=== PATIENT | male | born 1930 | race Caucasian/White ===

== ENCOUNTER 2017-12-29 16:52 | Observation (INO) | payer MEDICARE, OTHER ==
[2017-12-29] MEDS ORDERED: NS 0.9% 1000 ML* 500 ML IV ONE (17:07)
--- NOTE | 2017-12-29 17:19 | ED ---
Altered Mental Status - HPI Summary HPI Summary: This pt is an 87 y/o male presenting to [facility] via EMS for confusion and altered mental status. Per EMS, [place] [employer] found the pt wandering around in the local parking lot. Per EMS, pt was confused on site. EMS reports the pt had POC glucose of 95. Denies chest pain, SOB, headache, fever. Currently pt is able to state his name and where he currently is located. Pt is unable to state the president. Denies any PMHx. HPI IS LIMITED DUE TO LEVEL 5 CAVEAT - confusion and AMS. - History Of Current Complaint Stated Complaint: POSS AMS Time Seen by Provider: 12/29/17 17:06 Hx Obtained From: Patient Hx From Patient Unobtainable Due To: Altered Mental Status Onset/Duration: Still Present Timing: Constant Severity Currently: Moderate Character: Confusion Aggravating Factor(s): Unknown Alleviating Factor(s): Unknown Associated Signs And Symptoms: Negative: Fever - Allergies/Home Medications Allergies/Adverse Reactions: Allergies Allergy/AdvReac Type Severity Reaction Status Date / Time No Known Allergies Allergy Verified 12/29/17 18:10 Home Medications: Home Medications Unobtainable 12/29/17 [History Confirmed 12/29/17] PMH/Surg Hx/FS Hx/Imm Hx Previously Healthy: Yes - PMHx limited due to AMS Endocrine/Hematology History: Denies: Hx Diabetes Cardiovascular History: Denies: Hx Hypertension - Surgical History Surgery Procedure, Year, and Place: unknown - Family History Known Family History: Positive: Unknown - due to level 5 caveat - AMS - Social History Alcohol Use: None Substance Use Type: Reports: None Smoking Status (MU): Former Smoker Review of Systems - ROS Summary Review of Systems Summary: ROS IS LIMITED DUE TO LEVEL 5 CAVEAT - AMS Negative: Fever, Chills Negative: Chest Pain Negative: Shortness Of Breath Neurological: Other - POS: confusion, AMS Negative: Headache All Other Systems Reviewed And Are Negative: No Physical Exam - Summary Physical Exam Summary: VITAL SIGNS: Reviewed. GENERAL: Patient is a well-developed and nourished male who is lying comfortable in the stretcher. Patient is not in any acute respiratory distress. HEAD AND FACE: No signs of trauma. No ecchymosis, hematomas or skull depressions. No sinus tenderness. EYES: PERRLA, EOMI x 2, No injected conjunctiva, no nystagmus. EARS: Hearing grossly intact. Ear canals and tympanic membranes are within normal limits. MOUTH: Oropharynx within normal limits. NECK: Supple, trachea is midline, no adenopathy, no JVD, no carotid bruit, no c- spine tenderness, neck with full ROM. CHEST: Symmetric, no tenderness at palpation LUNGS: Clear to auscultation bilaterally. No wheezing or crackles. CVS: Regular rate and rhythm, S1 and S2 present, no murmurs or gallops appreciated. ABDOMEN: Soft, non-tender. No signs of distention. No rebound no guarding, and no masses palpated. Bowel sounds are normal. EXTREMITIES: FROM in all major joints, no edema, no cyanosis or clubbing. NEURO: Alert but not oriented. No acute neurological deficits. Speech is normal and follows commands. SKIN: Dry and warm GCS: 15 Triage Information Reviewed: Yes Vital Signs On Initial Exam: Initial Vitals Temp Pulse Resp BP Pulse Ox 98.3 F 84 16 134/87 96 12/29/17 17:05 12/29/17 17:05 12/29/17 17:05 12/29/17 17:05 12/29/17 17:05 Vital Signs Reviewed: Yes Completion Of Physical Exam Limited Due To: Altered Mental Status Diagnostics - Laboratory Result Diagrams: 12/29/17 17:34 12/29/17 17:34 Lab Statement: Any lab studies that have been ordered have been reviewed, and results considered in the medical decision making process. - Radiology Chest XR Xray Interpretation: Positive (See Comments) - IMPRESSION: There are no prior chest x-rays for comparison, but findings indicate the patient has a history of partial or complete left lobectomy. Scattered density in the lateral aspect of the left upper lobe and the right lower lobe as a broad differential including scarring, infiltrate, pneumonia or potentially neoplastic process. Dr. Small has reviewed this radiology report. Radiology Interpretation Completed By: Radiologist - CT Brain CT CT Interpretation: No Acute Changes - IMPRESSION: CT findings are consistent with age-appropriate involutional changes and microvascular disease without acute intracranial abnormality. Dr. Small has reviewed this radiology report. CT Interpretation Completed By: Radiologist - EKG 17:29 Cardiac Rate: NL - at 72 bpm EKG Rhythm: Sinus Rhythm EKG Interpretation: No ST elevations. Q waves in V1 and V2. Altered Mental Statu Course/Dx - Course Assessment/Plan: This patient is an 87-year-old male who presents to the emergency department escorted by police officers with a chief complaint of the patient having an acute episode of altered mental status. The patient is confused and he was found wandering in a parking lot. The patient is alert but not oriented. Blood test results shows a white blood cell count of 11.9, slight anemia, potassium level of 5.4, BUN is 41 and creatinine 1.9, glucose 111. Head CT shows no acute intracranial pathology only chronic changes. Chest x-ray impression: Positive right lower lobe pneumonia. In the ED course the patient was given IV fluids for dehydration, patient was given Levaquin for the pneumonia. At this time I discussed my physical exam and findings with Dr. Barragan from the hospitalist services who accepted the patient for admission. Patient is hemodynamically stable. - Diagnoses Provider Diagnoses: Acute alteration in mental status, Pneumonia, Renal failure - Provider Notifications Discussed Care Of Patient With: Charlie Barragan - hospitalist Time Discussed With Above Provider: 18:35 Instructed by Provider To: Admit As Inpatient Discharge - Sign-Out/Discharge Documenting (check all that apply): Patient Departure - Admit to [facility] - Discharge Plan Condition: Stable Disposition: ADMITTED TO [facility] - Billing Disposition and Condition Condition: STABLE Disposition: Admitted to [facility] - Attestation Statements Document Initiated by Scribe: Yes Documenting Scribe: Mckenzie Pierce Provider For Whom Pedroibe is Documenting (Include Credential): Hamlet Small MD Scribe Attestation: Mckenzie Daniel, scribed for Hamlet Small MD on 12/30/17 at 0818. Scribe Documentation Reviewed: Yes Provider Attestation: The documentation as recorded by the Mckenzie olivarez accurately reflects the service I personally performed and the decisions made by me, Hamlet Small MD
--- NOTE | 2017-12-29 17:38 | RAD ---
INDICATION: Altered mental status COMPARISON: None. TECHNIQUE: Single AP view of the chest was obtained. FINDINGS: Postsurgical changes include surgical material overlying the upper left lateral mediastinum. The heart and mediastinum exhibit normal size and contour. The left lung volume is hypoplastic relative to the right, suspected to be due to partial or complete lobectomy. There is scattered infiltrate at overlying the lateral aspect of the left upper lobe and to a lesser extent the lateral aspect of the right lower lobe. Visualized bones are normal for the patient's age. IMPRESSION: THERE ARE NO PRIOR CHEST X-RAYS FOR COMPARISON, BUT FINDINGS INDICATE THE PATIENT HAS A HISTORY OF PARTIAL OR COMPLETE LEFT LOBECTOMY. SCATTERED DENSITY IN THE LATERAL ASPECT OF THE LEFT UPPER LOBE AND THE RIGHT LOWER LOBE A BROAD DIFFERENTIAL INCLUDING SCARRING, INFILTRATE, PNEUMONIA OR POTENTIALLY NEOPLASTIC PROCESS.
--- NOTE | 2017-12-29 17:43 | RAD ---
INDICATION: Altered mental status COMPARISON: None. TECHNIQUE: Contiguous axial sections of the brain were obtained from the skull base to the vertex without contrast. FINDINGS: The ventricles, cisterns and sulci exhibit fairly symmetrical involutional changes not out of proportion for the patient's age.. There is a very mild degree of periventricular and subcortical white matter hypoattenuation most consistent with mild microvascular disease. The rodriguez-white matter differentiation is adequately maintained and there is no sulcal effacement. No significant focal abnormality or mass effect is present. There is no evidence for intracranial hemorrhage. No significant focal osseous abnormality is present. There is a very mild degree of mucosal thickening of the bilateral anterior ethmoid air cells. The mastoid air cells are well aerated bilaterally. IMPRESSION: CT findings are consistent with age-appropriate involutional changes and microvascular disease without acute intracranial abnormality.
[2017-12-29 18:06] LABS: EGFR Non-African American 33.9 (>60)
[2017-12-29 18:11] LABS: ABS Basophils 0 10^3/ul (0-0.2); ABS Eosinophils 0.1 10^3/ul (0-0.6); ABS Lymphocytes 1.3 10^3/ul (1.0-4.8); ABS Monocytes 0.9 10^3/ul (0-0.8); ABS Neutrophils 9.5 10^3/ul (1.5-7.7); ABS Nucleated RBC 0 10^3/ul; Eosinophil % 1.1 % (0-6); Hematocrit 38 % (42-52); Hemoglobin 12.2 g/dl (14.0-18.0); Mean Corpuscular HGB Conc 32 g/dl (31-36); Mean Corpuscular Hemoglobin 29 pg (27-31); Mean Corpuscular Volume 88 fL (80-94); Mean Platelet Volume 9.3 um3 (7.4-10.4); Nucleated Red Blood Cells % 0; Platelet Count 307 10^3/ul (150-450); Red Blood Count 4.28 10^6/ul (4.00-5.40); Red Cell Distribution Width 14 % (10.5-15); White Blood Count 11.9 10^3/ul (3.5-10.8)
[2017-12-29] MEDS ORDERED: Levofloxacin 750 MG IVPREMIX(* 750 MG/150 ML BAG IVPB ONE (18:35)
[2017-12-29] MEDS ORDERED: Sodium Polystyrene ORAL.SOL* 15 GM/60 ML BTL PO ONE (19:25)
[2017-12-29] MEDS: NS 0.9% 1000 ML* 1,000 ML IV SCH (21:21)
[2017-12-29] MEDS ORDERED: diPHENhydraMINE PO* 25 MG PO ONE (22:00)
--- NOTE | 2017-12-29 22:43 | HP ---
HISTORY AND PHYSICAL: DATE OF ADMISSION: 12/29/17 ADMITTING PROVIDER: Charlie Barragan MD PRIMARY CARE PROVIDER: Unknown. CHIEF COMPLAINT: Altered mental status, found wandering in the parking lot; chills. HISTORY OF PRESENT ILLNESS: Belkys Hartmann is an 87-year-old male, no known past medical history but evidence of left lobectomy on imaging; he was found wandering in the parking lot on the afternoon of admission, alert, but not oriented and was [place] [facility] [place]. He was able to give a formal address and his name, but no other contact information or details, he attested to shivering and hunger, but not any fevers, chest pain, shortness of breath, cough, diarrhea, vomiting, nausea, falls. On initial workup, he had creatinine of 1.90, potassium was 5.4, BUN of 41, and slight leukocytosis of 11.9, and slight hypercalcemia of 10.4. He was referred to hospitalist service for admission for altered mental status and likely need for social work/nursing facility placement if family cannot be found. He is afebrile, normotensive, saturating well on room air. He had a CT brain which showed components of age appropriate involutional changes and microvascular disease without acute intracranial abnormality and a chest x-ray which showed as above partial or complete left lobectomy and scattered densities in the lateral aspect of the left upper lobe and the right lower lobe with broad differential of scarring, infiltrate, pneumonia or potentially neoplastic process. A 750 mg of IV Levaquin had been ordered by the emergency room but it was asked to be delayed until blood cultures are drawn. The patient attests that he formally lived in a house in [place] that has been sold. He briefly mentioned that he "lives on campus," later clarified to [facility] but then later denies this. 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 PAST MEDICAL HISTORY: None known but tested being a former smoker and has evidence of partial or complete left lobectomy. MEDICATIONS: Denies any. ALLERGIES: Denies any. FAMILY HISTORY: Mother and father both . He does not know why. SOCIAL HISTORY: The patient states he is a former smoker. He drinks "very little." He attests that he thinks he has a , does not remember if she is alive. He attests to 1 son and 1 daughter, both reported living in [facility] , cannot attest how old they are or if they have their own families. The patient desires to be a full code. No known medical surrogate at this time. REVIEW OF SYSTEMS: A complete 14-point review of systems negative except as per HPI. PHYSICAL EXAMINATION GENERAL APPEARANCE: In no acute distress. The patient seems to be shivering. VITAL SIGNS: Temperature 98.3, pulse 84, respirations 16, satting 96% on room air, blood pressure 134/87. HEENT: Normocephalic, atraumatic. Pupils are equal, round, and reactive to light. Extraocular motions are intact. No scleral icterus. Dry mucous membranes. Very poor dentition. Evidence of looks like chewing tobacco, stains on his chin. No cervical lymphadenopathy. LUNGS: Clear to auscultation bilaterally with no wheezing, rales, or rhonchi. CARDIOVASCULAR: Regular rate and rhythm. No murmurs, rubs, or gallops. ABDOMEN: Soft, nontender, nondistended. No rebound or guarding. No Johansen's sign. EXTREMITIES: Warm, well perfused. No peripheral edema. SKIN: No lesions or rashes. NEURO: Hip flexor is 5/5 bilaterally. Financial Aid Advisor strength 5/5 bilaterally. Cranial nerves II through XII intact. The patient is oriented to his date of , but not current year. He knows his name but not reason for admission. DIAGNOSTIC STUDIES/LAB DATA: White count 11.9, hemoglobin 12.2, hematocrit 38 , platelets 307, neutrophils 79.8%. Sodium 143, potassium 5.4, chloride 107, carbon dioxide 27. BUN 41 and creatinine 1.90. Glucose 111. Lactic acid 2.0. Calcium 10.4. Magnesium 2.6. Total bili is 1.10. AST 15, ALT 11, alk phos 60, ammonia 32. Troponin 0.01. Albumin 4.6. TSH 5.25. Toxicology: Salicylates less than 2.5. Acetaminophen less than 15. Serum alcohol less than 10. Imaging: CT brain demonstrating consistent with age appropriate involutional changes and microvascular disease without acute intracranial abnormality. Chest x- ray demonstrating history of partial or complete left lobectomy. Scattered density in the lateral aspect of the left upper lobe and right lower lobe as broad differential includes scarring, infiltrate, pneumonia, or potentially neoplastic process. ASSESSMENT AND PLAN: Belkys Hartmann is an 87-year-old male with past medical history of left lobectomy, former smoker, current chewing tobacco use, otherwise unknown, who was found wandering in the parking lot, alert but not oriented to time or situation, found disheveled with evidence of acute kidney injury, mild leukocytosis, hyperkalemia, and seems to be shivering. He has some indeterminate chest x-ray findings with a broad differential. Procalcitonin is being added. I have asked the emergency room to hold off on his empiric dose of 750 mg of IV Levaquin until blood cultures are drawn. He also needs to have a urinalysis completed. He is not toxic-appearing but clearly disheveled, disoriented, and I will get a social work consult and physical therapy consultation (although it is noted he does have good strength in the bed). It is likely that he may need [facility] facility placement. I am admitting him to inpatient status as it is likely that he will need a placement and qualifying factors included hyperkalemia and acute kidney injury and altered mental status of unknown etiology. For encephalopathy/dementia workup I am getting HIV, syphilis, vitamin D, B12 in the morning. I will get urine random, creatinine, and urine sodium level and hydrate him with 75 cc of normal saline. For his hyperkalemia, I am going to give him 1 dose of Kayexalate 15 g po. Repeat BMP daily and hold off on empiric antibiotics until urinalysis and blood cultures can be obtained. Supplementing his diet with Ensure drinks, could consider calorie count. The patient is disheveled and BMI is 23.5. Radiologic differential included neoplastic process in the lungs. I have tried to call the number provided in the chart, . No one is answering. His listed address is [address] [place] [address]. He is a full code for now. No known medical surrogate. [id number]/[facility] #: [id number] MTDD
[2017-12-30 08:22] LABS: ABS Basophils 0 10^3/ul (0-0.2); ABS Eosinophils 0.4 10^3/ul (0-0.6); ABS Lymphocytes 1.7 10^3/ul (1.0-4.8); ABS Monocytes 0.7 10^3/ul (0-0.8); ABS Neutrophils 4.8 10^3/ul (1.5-7.7); ABS Nucleated RBC 0 10^3/ul; Eosinophil % 5.8 % (0-6); Hematocrit 32 % (42-52); Hemoglobin 10.7 g/dl (14.0-18.0); Lymphocyte % 22.1 % (25-47); Mean Corpuscular HGB Conc 33 g/dl (31-36); Mean Corpuscular Hemoglobin 29 pg (27-31); Mean Corpuscular Volume 88 fL (80-94); Mean Platelet Volume 9.3 um3 (7.4-10.4); Nucleated Red Blood Cells % 0; Platelet Count 242 10^3/ul (150-450); Red Blood Count 3.69 10^6/ul (4.00-5.40); Red Cell Distribution Width 14 % (10.5-15); White Blood Count 7.7 10^3/ul (3.5-10.8)
[2017-12-30 08:35] LABS: EGFR Non-African American 47.8 (>60)
[2017-12-30 10:51] LABS: Urine Appearance Cloudy; Urine Blood Negative (Negative); Urine Color Yellow; Urine Ketones Trace (Negative); Urine Protein Negative (Negative); Urine Specific Gravity 1.018 (1.010-1.030); Urine Urobilinogen Negative (Negative)
[2017-12-30] MEDS: NS 0.9% 1000 ML* 1,000 ML IV SCH (14:23)
[2017-12-30 15:05] VITALS: BP 120/70
--- NOTE | 2017-12-31 03:09 | DS ---
DISCHARGE SUMMARY: DATE OF ADMISSION: 12/29/17 DATE OF DISCHARGE: 12/30/17 ATTENDING PHYSICIAN: Charlie Barragan MD. PRIMARY CARE PHYSICIAN: Currently none, and is only followed up with [facility]. CHIEF COMPLAINT: The patient was found wandering, confused in a parking lot. PRINCIPAL DIAGNOSES: Altered mental status; dehydration; acute kidney injury. HISTORY OF PRESENT ILLNESS AND HOSPITAL COURSE: Belkys Hartmann is an 87-year- old male with past medical history of left lobectomy for infected cyst, osteoarthritis, who was brought [place] emergency [place] [facility] when he was found wandering in a parking lot and not oriented to place or time. As such he was a very poor historian and initial workup focused on his lab abnormalities of elevated creatinine of 1.90, BUN of 41, and potassium of 5.4 along with workup for encephalopathy/dementia in the otherwise undifferentiated elderly patient. Eventually, we were able to reach his daughter, Elena, who related that rather than the patient being homeless which was initial concern, he lives with the daughter. He frequently goes on walks and it was a very hot day on day of admission, and thus believed that he got dehydrated and then confused. He was given IV fluids with improvement in his creatinine to 1.41. He had negative HIV , syphilis. Normal TSH. Normal vitamin B12 of 385, vitamin D 25-OH of 22.9 ( low normal). He had a urinalysis, which was significant for trace ketones. A negative toxicology screen including salicylates, acetaminophen, alcohol levels. He had a mild leukocytosis of less than 11.9 (improved to 7.7 next morning) and his chest x-ray was read as scattered density in the lateral aspect of the upper lobe and right lower lobe with broad differential including scarring, infiltrate, pneumonia, or potentially neoplastic process. The patient otherwise was without fever, shortness of breath, cough. He was normotensive, tachypneic or hypoxic and normal sinus rhythm. He was given 1 dose of Levaquin in the ED after blood cultures and urine sample were obtained. The blood cultures had been no growth x1 day. He has had negative Strep pneumoniae, Legionella urine antigen test and his procalcitonin level was normal at less than 0.1. The patient's orientation improved by hospital day #2 and daughter, Elena relates that the patient often is very forgetful. 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 Consideration for assisted living facilities or other alternative living arrangements should be entertained if the patient wanders frequently in the future. He was given information about the [facility] with regard to service and resource for followup until he can reestablish care with [facility] or other local primary care providers. He should get a BMP as an outpatient. DISCHARGE MEDICATIONS: None. ACTIVITY LEVEL: No restrictions. FOLLOWUP: Please follow up with [facility] within 8 days of discharge or re-establish care with the [facility] or the local primary care providers. TIME SPENT: On discharge, 35 minutes. [id number]/[facility] #: [id number] DUSTIN
== END 2017-12-30 16:35 | disposition home or self-care (01) ==
LOC: ED 16:52 → MED 19:14 → INTOOBSV 19:14
PROVIDERS: ADMIT Internal Medicine; ATTEND Internal Medicine
DX: R41.82 Altered mental status, unspecified (principal); E86.0 Dehydration; N17.9 Acute kidney failure, unspecified; M19.90 Unspecified osteoarthritis, unspecified site; D72.829 Elevated white blood cell count, unspecified; Z87.891 Personal history of nicotine dependence; R94.31 Abnormal electrocardiogram [ECG] [EKG]
CPT/HCPCS: 36415; 70450; 71045; 80048; 80053; 80307; 80320; 80329; 81003; 82140; 82306; 82550; 82570; 82607; 83605; 83735; 84145; 84300; 84443; 84484; 85025; 86592; 86703; 87040; 87899; 93005; 96374; 99285; A9270-GY; G0378; G0480; G8978-GP-CI; G8979-GP-CI; G8980-GP-CI

== ENCOUNTER → 2018-08-30 14:22 | Emergency (ER) | payer OTHER ==
[~2018-08-30 14:22] MED LIST: NS 0.9% 1000 ML** 1,000 ML IV ONE
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
[2018-08-30 15:35] LABS: ABS Basophils 0.1 10^3/ul (0-0.2); ABS Eosinophils 0.6 10^3/ul (0-0.6); ABS Lymphocytes 1.9 10^3/ul (1.0-4.8); ABS Monocytes 0.8 10^3/ul (0-0.8); ABS Neutrophils 5.9 10^3/ul (1.5-7.7); Eosinophil % 6.1 %; Hematocrit 32 % (42-52); Hemoglobin 10.3 g/dL (14.0-18.0); Lymphocyte % 20.8 %; Mean Corpuscular HGB Conc 32 g/dL (31-36); Mean Corpuscular Hemoglobin 29 pg (27-31); Mean Corpuscular Volume 88 fL (80-94); Mean Platelet Volume 8.2 fL (7.4-10.4); Platelet Count 296 10^3/uL (150-450); Red Blood Count 3.58 10^6 /uL (4.18-5.48); Red Cell Distribution Width 14 % (10.5-15); White Blood Count 9.3 10^3/uL (3.5-10.8)
[2018-08-30 15:44] LABS: INR 1.05 (0.82-1.09)
[2018-08-30 15:54] LABS: Troponin I 0.01 ng/mL (<0.04)
[2018-08-30 15:56] LABS: ALT 10 U/L (7-52); AST 12 U/L (13-39); Albumin/Globulin Ratio 1.6 (1-3); Alkaline Phosphatase 62 U/L (34-104); BUN/Creatinine Ratio 21.7 (8-20); Blood Urea Nitrogen 28 mg/dL (6-24); CO2 Carbon Dioxide 27 mmol/L (22-32); Calcium 9.2 mg/dL (8.6-10.3); Chloride 108 mmol/L (101-111); EGFR African American 63.9 (>60); EGFR Non-African American 52.8 (>60); Globulin 2.5 g/dL (2-4); Glucose 85 mg/dL (70-100); Magnesium 2.2 mg/dL (1.9-2.7); Sodium 140 mmol/L (135-145); Total Protein 6.5 g/dL (6.4-8.9)
[2018-08-30 16:08] LABS: Anion Gap 5 mmol/L (2-11); Potassium 5.1 mmol/L (3.5-5.0)
[2018-08-30 16:12] LABS: Alcohol < 10 mg/dL (<10); Salicylate < 2.50 mg/dL (<30)
[2018-08-30 16:15] LABS: TSH (Thyroid Stimulating Horm) 5.26 mcIU/mL (0.34-5.60)
[2018-08-30 16:24] LABS: Acetaminophen < 15 mcg/mL
[2018-08-30 17:14] VITALS: BP 147/73
== END | disposition home or self-care (01) ==
LOC: ED 14:22
DX: F03.90 Unspecified dementia, unspecified severity, without behavioral disturbance, psychotic disturbance, mood disturbance, and anxiety (principal); Z87.891 Personal history of nicotine dependence
CPT/HCPCS: 36415; 70450; 71046; 80053; 80320; 80329; 82140; 83605; 83735; 84443; 84484; 85025; 85610; 87040; 93005; 96360; 99283; G0480

== ENCOUNTER 2018-09-05 15:21 | Inpatient (IN) | payer BC, MEDICARE, OTHER ==
--- NOTE | 2018-09-05 16:49 | ED ---
Psychiatric Complaint - History Of Current Complaint Chief Complaint: EDPsychosocial Time Seen by Provider: 09/05/18 15:52 - Allergies/Home Medications Allergies/Adverse Reactions: Allergies Allergy/AdvReac Type Severity Reaction Status Date / Time No Known Allergies Allergy Verified 07/08/18 08:58 PMH/Surg Hx/FS Hx/Imm Hx Endocrine/Hematology History: Denies: Hx Diabetes Cardiovascular History: Denies: Hx Hypertension Respiratory History: Reports: Hx Pneumonia History: Reports: Other Problems/Disorders - renal failure Sensory History: Denies: Hx Contacts or Glasses, Hx Hearing Aid Opthamlomology History: Denies: Hx Contacts or Glasses Neurological History: Reports: Other Neuro Impairments/Disorders - AMS - Surgical History Surgery Procedure, Year, and Place: left lobectomy Infectious Disease History: No Infectious Disease History: Denies: Traveled Outside the US in Last 30 Days - Family History Known Family History: Positive: Unknown - due to level 5 caveat - AMS - Social History Alcohol Use: None Alcohol Amount: patient states his last drink was yesterday Hx Substance Use: No Substance Use Type: Reports: None Hx Tobacco Use: Yes Smoking Status (MU): Former Smoker Physical Exam Vital Signs On Initial Exam: Initial Vitals Temp Pulse Resp BP Pulse Ox 97.9 F 62 16 181/56 99 09/05/18 15:25 09/05/18 15:25 09/05/18 15:25 09/05/18 15:25 09/05/18 15:25 Diagnostics - Vital Signs Vital Signs Temp Pulse Resp BP Pulse Ox 09/05/18 15:25 97.9 F 62 16 181/56 99 - Laboratory Lab Statement: Any lab studies that have been ordered have been reviewed, and results considered in the medical decision making process. Discharge - Discharge Plan Referrals: No Primary Care Phys,NOPCP [Primary Care Provider] -
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
[2018-09-05] MEDS ORDERED: Acetaminophen TAB* 325 MG PO PRN (17:39)
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
[2018-09-05] MEDS: Heparin VIAL(*) 5000 UNITS/ML VIAL (FIVE THOUSAND) SUBCUT SCH (22:13)
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
[2018-09-06] MEDS: Heparin VIAL(*) 5000 UNITS/ML VIAL (FIVE THOUSAND) SUBCUT SCH ×3 (06:24→21:08)
[2018-09-06 06:39] LABS: ABS Basophils 0.1 10^3/ul (0-0.2); ABS Eosinophils 0.7 10^3/ul (0-0.6); ABS Monocytes 0.7 10^3/ul (0-0.8); ABS Neutrophils 4.7 10^3/ul (1.5-7.7); Eosinophil % 9.1 %; Hematocrit 33 % (42-52); Hemoglobin 11.1 g/dL (14.0-18.0); Lymphocyte % 24.2 %; Mean Corpuscular HGB Conc 33 g/dL (31-36); Mean Corpuscular Hemoglobin 29 pg (27-31); Mean Corpuscular Volume 87 fL (80-94); Mean Platelet Volume 8.2 fL (7.4-10.4); Platelet Count 280 10^3/uL (150-450); Red Blood Count 3.83 10^6 /uL (4.18-5.48); Red Cell Distribution Width 14 % (10.5-15); White Blood Count 8.1 10^3/uL (3.5-10.8)
[2018-09-06 06:55] LABS: BUN/Creatinine Ratio 20.4 (8-20); Calcium 9.1 mg/dL (8.6-10.3); EGFR African American 78.4 (>60); EGFR Non-African American 64.8 (>60); Potassium 4.6 mmol/L (3.5-5.0)
[2018-09-06] MEDS: Donepezil TAB* 5 MG PO SCH (13:37)
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
--- NOTE | 2018-09-06 19:10 | PN ---
Subjective Date of Service: 09/06/18 Interval History: VS: HTN- trending down Lab: H/H low- chronic Mr. Hartmann is a pleasant 88yom who has no complaints today. Nursing states that he has been up walking the halls. No concerns today. Objective Active Medications: Acetaminophen (Tylenol Tab*) 650 mg PO Q6H PRN Donepezil HCl (Aricept Tab*) 5 mg PO DAILY SOCRATES Heparin Sodium (Porcine) (Heparin Vial(*)) 5,000 units SUBCUT Q8HR SOCRATES Vital Signs: Temp Pulse Resp BP Pulse Ox 97.2 F 59 17 148/49 100 09/06/18 07:39 09/06/18 07:39 09/06/18 08:00 09/06/18 07:39 09/06/18 07:39 Oxygen Devices in Use Now: None Appearance: Pt is laying in bed with LE elevated. He is dressed in street clothes with shoes on. He appears comfortable and in no acute distress. Eyes: No Scleral Icterus, PERRLA Ears/Nose/Mouth/Throat: NL Teeth, Lips, Gums, Clear Oropharnyx, Mucous Membranes Moist Neck: NL Appearance and Movements; NL JVP, Trachea Midline Respiratory: Symmetrical Chest Expansion and Respiratory Effort, Clear to Auscultation Cardiovascular: NL Sounds; No Murmurs; No JVD, RRR, No Edema Abdominal: NL Sounds; No Tenderness; No Distention, No Hepatosplenomegaly Extremities: No Edema, No Clubbing, Cyanosis Neurological: - - Alert. Oriented to self only. Result Diagrams: 09/06/18 06:18 09/06/18 06:18 Assess/Plan/Problems-Billing Assessment: Pt is an 88 yom with PMHx dementia, tobacco abuse who is brought in by EMS after found wandering around outside. - Patient Problems (1) Dementia Comment: -Patient with dementia; daughter having difficulty taking care of patient and wants more help at home. She does not want patient place in SNF. -Psych consulted, thank you. Daughter would like to try Aricept (2) DVT prophylaxis Comment: -Heparin SQ (3) Full code status Status and Disposition: Observation. Likely discharge in a.m.
[2018-09-07] MEDS: Heparin VIAL(*) 5000 UNITS/ML VIAL (FIVE THOUSAND) SUBCUT SCH ×3 (05:34→21:47)
[2018-09-07] MEDS: Donepezil TAB* 5 MG PO SCH (08:08)
[2018-09-08 04:46] LABS: ABS Basophils 0.1 10^3/ul (0-0.2); ABS Eosinophils 0.8 10^3/ul (0-0.6); ABS Lymphocytes 2.8 10^3/ul (1.0-4.8); ABS Neutrophils 4.2 10^3/ul (1.5-7.7); Eosinophil % 9.1 %; Hematocrit 36 % (42-52); Hemoglobin 11.6 g/dL (14.0-18.0); Lymphocyte % 31.7 %; Mean Corpuscular HGB Conc 32 g/dL (31-36); Mean Corpuscular Hemoglobin 29 pg (27-31); Mean Corpuscular Volume 88 fL (80-94); Mean Platelet Volume 8.6 fL (7.4-10.4); Platelet Count 270 10^3/uL (150-450); Red Blood Count 4.08 10^6 /uL (4.18-5.48); Red Cell Distribution Width 14 % (10.5-15)
[2018-09-08] MEDS: Heparin VIAL(*) 5000 UNITS/ML VIAL (FIVE THOUSAND) SUBCUT SCH ×2 (05:37→13:50)
[2018-09-08 08:38] VITALS: BP 142/41
[2018-09-08] MEDS: Donepezil TAB* 5 MG PO SCH (08:49)
--- NOTE | 2018-09-08 22:44 | DS ---
DISCHARGE SUMMARY: DATE OF ADMISSION: 09/05/18 DATE OF DISCHARGE: 09/08/18 PRIMARY CARE PROVIDER: ATTENDING PHYSICIAN: Mckenzie Bond MD *(dictated by JOSE Hassan). PRIMARY DIAGNOSIS: Dementia, snf care. SECONDARY DIAGNOSES: 1. Dementia. 2. History of tobacco abuse. 3. Probable partial or complete left lobectomy. 4. Admitted to [facility] in December 2000 with altered mental status, dehydration, acute kidney injury. 5. Probable chronic obstructive pulmonary disease. DISCHARGE MEDICATIONS: Home medication: Acetaminophen 650 mg p.o. every 6 hours p.r.n.. New home medication: Donepezil 5 mg p.o. daily. HISTORY OF PRESENT ILLNESS/ HOSPITAL COURSE: Mr. Hartmann is an 88-year-old male with a past medical history of dementia, probable COPD, who is brought to the ER by EMS after being found wandering town, confused. Nursing staff report that the police often picked the patient up uncleaned and uncared for. It was noted that the patient was seen approximately 1 week ago in the ER for similar presentation. He is described as forgetful, confused, oriented to place only. At that time, he was seen by Social Work. Family members were contacted and the patient was referred to Adult Protective Services. At the most recent admission, Adult Protective Services was again contacted and the hospital service was consulted and the patient was admitted for snf care. Prior to admission, a full workup was completed which revealed chronic anemia that is stable, vitamin B12 is within normal limits, as well as IgG antibody is negative. A psych consultation was ordered at the request of the daughter. At this time, Dr. Liu recommends a trial of Aricept 5 mg p.o. daily. He notes that he does not see any further need for psychiatric intervention at the time. Currently, Mr. Hartmann's daughter is requesting to take the patient home. She has enlisted in additional services to help her care for the patient. Again , [facility] has been contacted multiple times for this patient. The daughter refuses placement for the patient. On the day of discharge, the patient is pleasantly confused. He has no complaints at this time although it is unknown whether review of systems is reliable. Mr. Hartmann is stable for discharge. PHYSICAL EXAMINATION: Vital Signs: Temperature 98.0 oral, heart rate 55, respiratory rate 18, oxygen saturation 100% on room air, blood pressure 142/41. General: Mr. Hartmann is a well-developed, well-nourished, thin, elderly white male, who is sitting up in bed. He appears to be in no acute distress. He is pleasant and cooperative although confused. HEENT: Visual ryan are grossly intact. PERRL. Extraocular movements are intact. The sclerae are without icterus. Hearing is grossly intact. Oral mucous membranes are moist. There are no lesions. Cardiovascular: Regular rate and rhythm with S1, S2 present. No murmurs, rubs, clicks, or gallops. Respiratory: Symmetrical chest expansion without use of accessory muscles. The lungs are clear to auscultation bilaterally without wheeze, rhonchi, or rubs. Abdomen: Abdomen is flat. Bowel sounds noted in all quadrants. The abdomen is soft and nontender to palpation without hepatosplenomegaly. Musculoskeletal: Full range of motion without pain or deformities. Extremities: Skin is warm and smooth bilaterally. There is no clubbing, cyanosis, or edema. Radial and pedal pulses are palpable. It is noted that the patient does have thick, long toe nails that are curling under and abutting the soft skin of the toes. Neuro : The patient is awake. He is alert. He is oriented to self only. He is able to move all of his extremities. He has a study gait without impairment. DISCHARGE PLAN: Mr. Hartmann will be discharged to home under the care of his daughter. ACTIVITY: As tolerated. DIET: Regular. MEDICATION: Donepezil 5 mg p.o. daily. EDUCATION: 1. Follow-up with primary care provider in 4 to 7 days. Be sure to discuss Aricept usage and possible refills. 2. Podiatry referral and consultation recommended. 3. Return to the ER or the nearest hospital if he experience any worsening of symptoms, shortness of breath, chest discomfort, high fever, chills, night sweats, lightheadedness, dizziness, loss of consciousness, or any other worrisome signs or symptoms. This is a summarized report of a complex medical history and hospital stay. For further details, please see the entire medical record. TIME SPENT: Approximately 35 minutes was spent on this discharge. Greater than half of the time was spent [id number] with the patient, discussing discharge plans and instructions. JOSE COELLO [id number]/[facility] #: [id number] [facility]PITALPierce
== END 2018-09-08 17:35 | disposition home or self-care (01) | DRG 884 ==
LOC: ED 15:21 → MED 17:37 → INTOOBSV 17:37 → OBSVTOIN 09-07 00:01
PROVIDERS: ADMIT Internal Medicine; ATTEND Internal Medicine
DX: F03.90 Unspecified dementia, unspecified severity, without behavioral disturbance, psychotic disturbance, mood disturbance, and anxiety (principal); J44.9 Chronic obstructive pulmonary disease, unspecified; I10 Essential (primary) hypertension; D64.9 Anemia, unspecified; Z87.01 Personal history of pneumonia (recurrent); Z90.2 Acquired absence of lung [part of]; Z87.891 Personal history of nicotine dependence
CPT/HCPCS: 36415; 80048; 82607; 85025; 86780; 99284; A9270-GY; G0378; J1644

== ENCOUNTER 2018-09-14 12:46 | Emergency (ER) | payer MEDICARE ==
[2018-09-14 14:27] LABS: ABS Basophils 0.1 10^3/ul (0-0.2); ABS Eosinophils 0.4 10^3/ul (0-0.6); ABS Lymphocytes 1.6 10^3/ul (1.0-4.8); ABS Monocytes 0.9 10^3/ul (0-0.8); ABS Neutrophils 6.7 10^3/ul (1.5-7.7); Hematocrit 32 % (42-52); Hemoglobin 10.7 g/dL (14.0-18.0); Lymphocyte % 16.7 %; Mean Corpuscular HGB Conc 33 g/dL (31-36); Mean Corpuscular Hemoglobin 29 pg (27-31); Mean Corpuscular Volume 88 fL (80-94); Mean Platelet Volume 8.8 fL (7.4-10.4); Platelet Count 333 10^3/uL (150-450); Red Blood Count 3.66 10^6 /uL (4.18-5.48); Red Cell Distribution Width 14 % (10.5-15); White Blood Count 9.6 10^3/uL (3.5-10.8)
--- NOTE | 2018-09-14 14:30 | ED ---
Psychiatric Complaint - HPI Summary HPI Summary: The patient is an 88 y/o M presenting to [facility] brought in by [employer] as 941 with a chief complaint of dementia and homelessness starting today. He was found at the [facility] in [place], and he often wanders around despite living with his daughter and having dementia. He denies myalgia and SOB. - History Of Current Complaint Chief Complaint: EDPsychosocial Time Seen by Provider: 09/14/18 13:34 Hx Obtained From: Patient, Other: - [employer] Hx From Patient Unobtainable Due To: Dementia Onset/Duration: Gradual Onset, Lasting Hours Timing: Hours Severity Initially: Moderate Severity Currently: Moderate Aggravating Factor(s): Nothing Alleviating Factor(s): Nothing - Allergies/Home Medications Allergies/Adverse Reactions: Allergies Allergy/AdvReac Type Severity Reaction Status Date / Time No Known Allergies Allergy Verified 09/14/18 13:52 PMH/Surg Hx/FS Hx/Imm Hx Endocrine/Hematology History: Denies: Hx Diabetes Cardiovascular History: Denies: Hx Hypertension Respiratory History: Reports: Hx Pneumonia History: Reports: Other Problems/Disorders - renal failure Sensory History: Denies: Hx Contacts or Glasses, Hx Hearing Aid Opthamlomology History: Denies: Hx Contacts or Glasses Neurological History: Reports: Other Neuro Impairments/Disorders - AMS - Surgical History Surgery Procedure, Year, and Place: left lobectomy - Immunization History Immunizations Up to Date: Unable to Obtain/Confirm Infectious Disease History: No Infectious Disease History: Denies: Traveled Outside the [place] in Last 30 Days - Family History Known Family History: Positive: Unknown - due to level 5 caveat - AMS - Social History Alcohol Use: Rare Alcohol Amount: patient states his last drink was yesterday Hx Substance Use: No Substance Use Type: Reports: None Hx Tobacco Use: Yes Smoking Status (MU): Former Smoker Do You Chew or Dip Tobacco: No Review of Systems Negative: Shortness Of Breath Negative: Myalgia All Other Systems Reviewed And Are Negative: Yes Physical Exam - Summary Physical Exam Summary: VITAL SIGNS: Reviewed. GENERAL: Patient is a well-developed and nourished male who is lying comfortable in the stretcher. Patient is not in any acute respiratory distress. HEAD AND FACE: No signs of trauma. No ecchymosis, hematomas or skull depressions. No sinus tenderness. EYES: PERRLA, EOMI x 2, No injected conjunctiva, no nystagmus. EARS: Hearing grossly intact. Ear canals and tympanic membranes are within normal limits. MOUTH: Oropharynx within normal limits. NECK: Supple, trachea is midline, no adenopathy, no JVD, no carotid bruit, no c- spine tenderness, neck with full ROM. CHEST: Symmetric, no tenderness at palpation LUNGS: Clear to auscultation bilaterally. No wheezing or crackles. CVS: Regular rate and rhythm, S1 and S2 present, no murmurs or gallops appreciated. ABDOMEN: Soft, non-tender. No signs of distention. No rebound no guarding, and no masses palpated. Bowel sounds are normal. EXTREMITIES: FROM in all major joints, no edema, no cyanosis or clubbing. NEURO: Alert but not fully oriented. Signs of dementia. Speech is normal and follows commands. SKIN: Dry and warm PSYCH: Depressed, quiet, and denies any suicidal thoughts or plan. No homicidal thoughts or plan. No signs of psychosis or pressure speech. No tangential speech. Triage Information Reviewed: Yes Vital Signs On Initial Exam: Initial Vitals Temp Pulse Resp BP Pulse Ox 98.8 F 81 17 131/52 97 09/14/18 12:47 09/14/18 12:47 09/14/18 12:47 09/14/18 12:47 09/14/18 12:47 Vital Signs Reviewed: Yes - [place] Coma Scale Best Eye Response: 4 - Spontaneous Best Motor Response: 6 - Obeys Commands Best Verbal Response: 5 - Oriented Coma Scale Total: 15 Diagnostics - Vital Signs Vital Signs Temp Pulse Resp BP Pulse Ox 09/14/18 12:47 98.8 F 81 17 131/52 97 - Laboratory Result Diagrams: 09/14/18 14:17 09/14/18 14:17 Lab Statement: Any lab studies that have been ordered have been reviewed, and results considered in the medical decision making process. - Radiology CXR Radiology Interpretation Completed By: Radiologist Summary of Radiographic Findings: Postoperative changes in the left suprahilar area with chronic pleural changes. ED physician has reviewed this report. - CT Brain CT CT Interpretation Completed By: Radiologist Summary of CT Findings: Stable chronic findings as described above without CT apparent acute intracranial abnormality. ED physician has reviewed this report. - EKG 13:44 Cardiac Rate: NL - 63 BPM EKG Rhythm: Sinus Rhythm EKG Comparison: No Significant Change - Similar to the EKG taken on 08/30/2018 Summary of EKG Findings: Nml axis, no ST elevations Course/Dx - Course Assessment/Plan: The patient is an 88 y/o M [facility] brought in by [facility] as 941 with a chief complaint of dementia and homelessness starting today. He was found at the [facility] in [place], and he often wanders around despite living with his daughter and having dementia. He denies myalgia and SOB. Patient is resting comfortable. The patient is alert but not oriented. Blood test results without any significant abnormality except for slight anemia with a hemoglobin 10.7, hematocrit 32, hemoglobin 29 and creatinine is 1.2. Chest x- ray impression: Postoperative changes in the left suprahilar area with chronic neurologic changes. Head CT impression: A stable chronic findings as described above without CT apparent acute interconnected abnormality. timber mill worker was able to talk to the patients daughter and she will come and take the patient home. She will be taking care of the patient for now. The patient is hemodynamically stable alert but not oriented. The patient is at baseline. - Differential Dx/Clinical Impression Provider Diagnosis: Dementia Discharge - Sign-Out/Discharge Documenting (check all that apply): Patient Departure - Patient will be discharged home. Patient Received Moderate/Deep Sedation with Procedure: No - Discharge Plan Condition: Stable Disposition: HOME Patient Education Materials: Dementia (ED) Referrals: [facility] PHYSICIAN REFERRAL [Outside] - 3 Days Additional Instructions: F/U with PCP. Patient discharged home with daughter. - Billing Disposition and Condition Condition: STABLE Disposition: Home - Attestation Statements Document Initiated by Marc: Yes Documenting Scribe: Angella De Leon Provider For Whom Marc is Documenting (Include Credential): MD Pedro Welshibmorena Attestation: Angella Daniel scribed for Dr. Hamlet Small MD on 09/15/18 at 2126. Scribe Documentation Reviewed: Yes Provider Attestation: The documentation as recorded by the Angella olivarez accurately reflects the service I personally performed and the decisions made by me, Dr. Hamlet Small MD Status of Scribe Document: Viewed
[2018-09-14 14:46] LABS: Troponin I 0.01 ng/mL (<0.04)
[2018-09-14 14:49] LABS: ALT 28 U/L (7-52); AST 17 U/L (13-39); Albumin 4.1 g/dL (3.2-5.2); Albumin/Globulin Ratio 1.6 (1-3); Alkaline Phosphatase 65 U/L (34-104); Anion Gap 5 mmol/L (2-11); BUN/Creatinine Ratio 24.2 (8-20); Blood Urea Nitrogen 29 mg/dL (6-24); CO2 Carbon Dioxide 28 mmol/L (22-32); Calcium 9.3 mg/dL (8.6-10.3); Chloride 108 mmol/L (101-111); Creatine Kinase 55 U/L (10-223); EGFR African American 69.5 (>60); EGFR Non-African American 57.4 (>60); Globulin 2.5 g/dL (2-4); Glucose 86 mg/dL (70-100); Magnesium 2.5 mg/dL (1.9-2.7); Potassium 4.5 mmol/L (3.5-5.0); Sodium 141 mmol/L (135-145); Total Protein 6.6 g/dL (6.4-8.9)
[2018-09-14 15:09] LABS: Acetaminophen < 15 mcg/mL; Alcohol < 10 mg/dL (<10)
[2018-09-14 15:16] LABS: TSH (Thyroid Stimulating Horm) 5.34 mcIU/mL (0.34-5.60)
[2018-09-14 17:23] VITALS: BP 144/62
== END 2018-09-14 17:22 | disposition home or self-care (01) ==
LOC: ED 12:46
DX: F03.90 Unspecified dementia, unspecified severity, without behavioral disturbance, psychotic disturbance, mood disturbance, and anxiety (principal); Z87.891 Personal history of nicotine dependence
CPT/HCPCS: 36415; 70450; 71045; 80053; 80320; 80329; 82140; 82550; 83605; 83735; 84443; 84484; 85025; 93005; 99282; G0480

== ENCOUNTER 2018-10-24 19:47 | Emergency (ER) | payer MEDICARE ==
[2018-10-24] MEDS ORDERED: NS 0.9% 1000 ML** 1,000 ML IV ONE (20:14)
--- NOTE | 2018-10-24 20:26 | ED ---
Laceration/Wound HPI - HPI Summary HPI Summary: Per EMS, this patient is an 88 year old M presenting to [facility] with a chief complaint of injury to third right digit on 10/24/18 as a police car door closed on his finger. Patient has a PMHx of dementia. THE HPI IS LIMITED DUE TO LEVEL 5 CAVEAT- DEMENTIA - History of Current Complaint Stated Complaint: EVALUATION, TRAUMATIC INJURY PEER EMS Time Seen by Provider: 10/24/18 20:13 Hx Obtained From: EMS Hx From Patient Unobtainable Due To: Dementia Onset/Duration: Sudden Onset, Still Present Current Severity: Mild Pain Intensity: 3 Pain Scale Used: 0-10 Numeric - Additional Pertinent History Primary Care Physician: [id number] - Allergy/Home Medications Allergies/Adverse Reactions: Allergies Allergy/AdvReac Type Severity Reaction Status Date / Time No Known Allergies Allergy Verified 10/24/18 19:59 PMH/Surg Hx/FS Hx/Imm Hx Previously Healthy: No - THE PMHx IS LIMITED DUE TO LEVEL 5 CAVEAT- DEMENTIA Endocrine/Hematology History: Denies: Hx Diabetes Cardiovascular History: Denies: Hx Hypertension Respiratory History: Reports: Hx Pneumonia History: Reports: Other Problems/Disorders - renal failure Sensory History: Denies: Hx Contacts or Glasses, Hx Hearing Aid Opthamlomology History: Denies: Hx Contacts or Glasses Neurological History: Reports: Other Neuro Impairments/Disorders - AMS - Surgical History Surgery Procedure, Year, and Place: left lobectomy Infectious Disease History: No Infectious Disease History: Denies: Traveled Outside the [place] in Last 30 Days - Family History Known Family History: Positive: Unknown - due to level 5 caveat - DEMENTIA - Social History Alcohol Use: Rare Alcohol Amount: patient states his last drink was yesterday Hx Substance Use: No Substance Use Type: Reports: None Hx Tobacco Use: Yes Smoking Status (MU): Former Smoker Review of Systems Positive: Other - Pos - Finger Laceration Neurological: Other - Pos - Dementia All Other Systems Reviewed And Are Negative: No - Comments Additional Review of Systems Comments: THE ROS IS LIMITED DUE TO LEVEL 5 CAVEAT-DEMENTIA Physical Exam - Summary Physical Exam Summary: THE PE IS LIMITED DUE TO LEVEL 5 CAVEAT- DEMENTIA Appearance: The patient is well-nourished in no acute distress and in no acute pain. Skin: The skin is warm and dry and skin color reflects adequate perfusion. 1 and cm laceration on right third dorsal with PIP, and evulsion over DIP, 8mm HEENT: The head is normocephalic and atraumatic. The pupils are equal and reactive. The conjunctivae are clear and without drainage. Nares are patent and without drainage. Mouth reveals moist mucous membranes and the throat is without erythema and exudate. The external ears are intact. The ear canals are patent and without drainage. The tympanic membranes are intact. Neck: The neck is supple with full range of motion and non-tender. There are no carotid bruits. There is no neck vein distemension. Respiratory: Chest is non-tender. Lungs are clear to auscultation and breath sounds are symmetrical and equal. Cardiovascular: Heart is regular rate and rhythm. There is no murmur or rub auscultated. There is no peripheral edema and pulses are symmetrical and equal. Abdomen: The abdomen is soft and non-tender. There are normal bowel sounds heard in all four quadrants and there is no organomegaly palpated. Musculoskeletal: There is no back tenderness noted. Extremities are non-tender with full range of motion. There is good capillary refill. There is no peripheral edema or calf tenderness elicited. Neurological: Patient is alert. The patient has symmetrical motor strength in all four extremities. Cranial nerves are grossly intact. Deep tendon reflexes are symmetrical and equal in all four extremities. Psychiatric: The patient has an appropriate affect and does not exhibit any anxiety or depression. Triage Information Reviewed: Yes Vital Signs On Initial Exam: Initial Vitals Temp Pulse Resp BP Pulse Ox 98.5 F 63 18 155/53 100 10/24/18 19:53 10/24/18 19:53 10/24/18 19:53 10/24/18 19:53 10/24/18 19:53 Vital Signs Reviewed: Yes Completion Of Physical Exam Limited Due To: Dementia Procedures - Laceration/Wound Repair 1 Location: upper extremity - middle finger of right hand Description: Linear - Proximal lac is linear over the dorsum of his PIP and about 1 1/4 cm. Distal lac is avulsion over the DIP about 0.8 cm Anesthesia: Local, 1.0%, Lido Betadine Prep?: Yes - Hibiclens Irrigated w/ Saline (ccs): 100 Laceration/Wound Explored: clean Closure: Single Layer - 4.0 nylon to proximal lac distal lac was steristripped Suture Type: Nylon Number of Sutures: 5 Diagnostics - Vital Signs Vital Signs Temp Pulse Resp BP Pulse Ox 10/24/18 19:53 98.5 F 63 18 155/53 100 - Laboratory Result Diagrams: 10/24/18 20:25 10/24/18 20:25 Lab Statement: Any lab studies that have been ordered have been reviewed, and results considered in the medical decision making process. Laceration Repair Course/Dx - Course Course Of Treatment: Mr. Hartmann has a history of dementia and wandering. He was missing for several hours today and found outside a store. He was brought in by the police with a concern that he might be dehydrated or have heat exhaustion. He accidently got his finger slammed in the door of the cruiser. He was nontoxic in appearance with stable vitals when I saw him. Labs and ECG were WNL. I sutured up his finger. - Clinical Impression Provider Diagnoses: Finger laceration, Dementia Discharge - Sign-Out/Discharge Documenting (check all that apply): Patient Departure - Discharge Patient Received Moderate/Deep Sedation with Procedure: No - Discharge Plan Condition: Stable Disposition: HOME Patient Education Materials: Dementia (ED), Finger Laceration (ED) Referrals: [facility] [Outside] - 3 Days Additional Instructions: Follow up with primary care provider within 2-3 days. RETURN TO THE EMERGENCY DEPARTMENT FOR CHANGING OR WORSENING SYMPTOMS. - Billing Disposition and Condition Condition: STABLE Disposition: Home - Attestation Statements Document Initiated by Pedroibe: Yes Documenting Scribe: Monika Oneill Provider For Whom Scribe is Documenting (Include Credential): Dr. Omer Villarreal MD Scribe Attestation: Monika Daniel scribed for Dr. Omer Villarreal MD on 10/25/18 at 1333. Scribe Documentation Reviewed: Yes Provider Attestation: The documentation as recorded by the Monika olivarez accurately reflects the service I personally performed and the decisions made by me, Dr. Omer Villarreal MD Status of Scribe Document: Viewed
[2018-10-24 20:34] LABS: ABS Basophils 0.1 10^3/ul (0-0.2); ABS Eosinophils 0.5 10^3/ul (0-0.6); ABS Lymphocytes 2.2 10^3/ul (1.0-4.8); ABS Monocytes 0.9 10^3/ul (0-0.8); ABS Neutrophils 6.4 10^3/ul (1.5-7.7); Eosinophil % 4.6 %; Hematocrit 31 % (42-52); Hemoglobin 10.2 g/dL (14.0-18.0); Lymphocyte % 22.3 %; Mean Corpuscular HGB Conc 33 g/dL (31-36); Mean Corpuscular Hemoglobin 29 pg (27-31); Mean Corpuscular Volume 87 fL (80-94); Mean Platelet Volume 8.9 fL (7.4-10.4); Platelet Count 254 10^3/uL (150-450); Red Blood Count 3.53 10^6 /uL (4.18-5.48); Red Cell Distribution Width 14 % (10-15); White Blood Count 10.1 10^3/uL (3.5-10.8)
[2018-10-24 20:52] LABS: Albumin 3.7 g/dL (3.2-5.2); Albumin/Globulin Ratio 1.5 (1-3); C Reactive Protein 4.28 mg/L (<8.01); Calcium 8.8 mg/dL (8.6-10.3); EGFR African American 60.6 (>60); EGFR Non-African American 50.1 (>60); Globulin 2.5 g/dL (2-4); Potassium 4.5 mmol/L (3.5-5.0); Total Protein 6.2 g/dL (6.4-8.9)
[2018-10-24 23:09] VITALS: BP 126/48
== END 2018-10-24 22:41 | disposition home or self-care (01) ==
LOC: ED 19:47
DX: S61.212A Laceration without foreign body of right middle finger without damage to nail, initial encounter (principal); F03.90 Unspecified dementia, unspecified severity, without behavioral disturbance, psychotic disturbance, mood disturbance, and anxiety; V48.4XXA Person boarding or alighting a car injured in noncollision transport accident, initial encounter; Z87.891 Personal history of nicotine dependence
CPT/HCPCS: 12001; 36415; 73140; 80053; 84484; 85025; 86140; 93005; 96360; 99283

== ENCOUNTER 2019-01-10 14:37 | Emergency (ER) | payer MEDICARE, MEDICAID ==
[2019-01-10 15:32] LABS: ABS Eosinophils 0.7 10^3/ul (0-0.6); ABS Lymphocytes 1.5 10^3/ul (1.0-4.8); ABS Monocytes 1.1 10^3/ul (0-0.8); ABS Neutrophils 8.6 10^3/ul (1.5-7.7); Eosinophil % 5.6 %; Hematocrit 32 % (42-52); Hemoglobin 10.5 g/dL (14.0-18.0); Lymphocyte % 12.4 %; Mean Corpuscular HGB Conc 33 g/dL (31-36); Mean Corpuscular Hemoglobin 29 pg (27-31); Mean Corpuscular Volume 88 fL (80-94); Mean Platelet Volume 8.3 fL (7.4-10.4); Platelet Count 314 10^3/uL (150-450); Red Blood Count 3.65 10^6 /uL (4.18-5.48); Red Cell Distribution Width 14 % (10-15); White Blood Count 11.9 10^3/uL (3.5-10.8)
--- NOTE | 2019-01-10 15:35 | ED ---
GI/ HPI - HPI Summary HPI Summary: Pt is a 88 y/o M presenting to the ED for anal bleeding. Pts daughter found red blood on his legs when she was helping her go to the bathroom. He was seen at the [place] 1 month ago with no determined diagnosis. A stool sample collected showed blood in stool and pt was recommended to have a colonoscopy performed, however his last colonoscopy was over 10 years ago. He denies pain, weakness, syncope, gross blood in stool, nausea, vomiting, or diarrhea. Pt has a PMHx of dementia. He drinks alcohol once a day and chews tobacco. Denies drug use or taking blood thinners. Medications reviewed. Allergies noted. 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 Onset/Duration: Started Hours Ago Timing: Lasting Hours Severity: Moderate Current Severity: Mild Pain Intensity: 0 Location of Pain: None Associated Signs and Symptoms: Negative: Back Pain, Weakness, Syncope, Nausea, Vomiting, Rectal Pain, Blood w/Stool, Diarrhea, Abdominal Pain Aggravating Factor(s): Nothing Alleviating Factor(s): Nothing - Additional Pertinent History Primary Care Physician: [id number] - Allergy/Home Medications Allergies/Adverse Reactions: Allergies Allergy/AdvReac Type Severity Reaction Status Date / Time No Known Allergies Allergy Verified 10/24/18 19:59 Home Medications: Home Medications NK [No Home Medications Reported] 01/10/19 [History Confirmed 01/10/19] PMH/Surg Hx/FS Hx/Imm Hx Previously Healthy: Yes Endocrine/Hematology History: Denies: Hx Diabetes Cardiovascular History: Denies: Hx Hypertension Respiratory History: Reports: Hx Pneumonia History: Reports: Other Problems/Disorders - renal failure Sensory History: Denies: Hx Contacts or Glasses, Hx Hearing Aid Opthamlomology History: Denies: Hx Contacts or Glasses Neurological History: Reports: Hx Dementia, Other Neuro Impairments/Disorders - AMS - Surgical History Surgery Procedure, Year, and Place: left lobectomy Infectious Disease History: No Infectious Disease History: Denies: Traveled Outside the [place] in Last 30 Days - Family History Known Family History: Negative: Diabetes - Social History Alcohol Use: Rare Alcohol Amount: patient states his last drink was yesterday Hx Substance Use: No Substance Use Type: Reports: None Hx Tobacco Use: Yes Smoking Status (MU): Former Smoker - chewing tobacco Type: Smokeless Tobacco Do You Chew or Dip Tobacco: Yes Have You Chewed or Dipped Tobacco in the LAST YEAR: Yes Review of Systems Gastrointestinal: Negative - gross blood in stool Positive: Other - Positive anal bleeding. Negative: Abdominal Pain, Vomiting, Diarrhea, Nausea Negative: pain - rectal Negative: Myalgia - back pain Negative: Weakness, Syncope All Other Systems Reviewed And Are Negative: Yes Physical Exam - Summary Physical Exam Summary: Constitutional: Well-developed, Well-nourished, Alert. (-) Distressed Skin: Warm, Dry HENT: Normocephalic; Atraumatic Eyes: Conjunctiva normal Neck: Musculoskeletal ROM normal neck. (-) JVD, (-) Stridor, (-) Tracheal deviation Cardio: Rhythm regular, rate normal, Heart sounds normal; Intact distal pulses; The pedal pulses are 2+ and symmetric. Radial pulses are 2+ and symmetric. (-) Murmur Pulmonary/Chest wall: Effort normal. (-) Respiratory distress, (-) Wheezes, (-) Rales Abd: Soft, (-) tenderness, (-) Distension, (-) Guarding, (-) Rebound Musculoskeletal: (-) Edema Lymph: (-) Cervical adenopathy Neuro: Alert, Oriented x3 Psych: Mood and affect Normal Rectal: brown stool. Triage Information Reviewed: Yes Vital Signs On Initial Exam: Initial Vitals Temp Pulse Resp BP Pulse Ox 98.7 F 72 18 172/66 99 01/10/19 14:51 01/10/19 14:51 01/10/19 14:51 01/10/19 14:51 01/10/19 14:51 Vital Signs Reviewed: Yes Diagnostics - Vital Signs Vital Signs Temp Pulse Resp BP Pulse Ox 01/10/19 14:51 98.7 F 72 18 172/66 99 - Laboratory Result Diagrams: 01/10/19 15:19 01/10/19 18:24 Lab Statement: Any lab studies that have been ordered have been reviewed, and results considered in the medical decision making process. - EKG 1734 Cardiac Rate: NL - 65 BPM EKG Rhythm: Sinus Rhythm ST Segment: Normal Ectopy: None Summary of EKG Findings: EKG at 17:34 on 01/10/2019 shows 65 BPM with a normal sinus rhythm and no STEMI. 1745 Cardiac Rate: NL - 64bpm EKG Rhythm: Sinus Rhythm ST Segment: Normal Ectopy: None Summary of EKG Findings: EKG at 17:45 on 01/10/2019 shows 64 BPM with normal sinus rhythm and no STEMI. Re-Evaluation - Re-Evaluation 1st re-eval Re-Evaluation Time: 17:19 Change: Unchanged Comment: I re-evalutated the pt. Potassium level is 5.8, will do EKG and a nebulizer treatment unless EKG changes. GIGU Course/Dx - Course Course Of Treatment: Patient is here with suspected blood in stool. Patien't granddaughter saw some red area on his leg which is either blood or a rash. Patient had brown stool on rectal exam with negative occult testing. Patient had a CBC with no evidence of worsening anemia. Patient's overall well- appearing was discharged with PCP fall. - Diagnoses Provider Diagnoses: Hyperkalemia, Lower GI bleed Discharge ED - Sign-Out/Discharge Documenting (check all that apply): Patient Departure Patient Received Moderate/Deep Sedation with Procedure: No - Discharge Plan Condition: Stable Disposition: HOME Patient Education Materials: Hyperkalemia (ED) Referrals: [facility] [Outside] Additional Instructions: Return if there is any obvious blood in stool, generalized weakness, or any new of worsening symptoms. Follow-up with PCP in 1-3 days. - Billing Disposition and Condition Condition: STABLE Disposition: Home - Attestation Statements Document Initiated by Scribe: Yes Documenting Scribe: Neva Contreras Provider For Whom Marc is Documenting (Include Credential): Griffin Chaney MD. Scribe Attestation: I, Neva Contreras, scribed for Griffin Chaney MD. on 01/11/19 at 2348. Scribe Documentation Reviewed: Yes Provider Attestation: The documentation as recorded by the serjioibmorena, Neva Contreras accurately reflects the service I personally performed and the decisions made by me, Griffin Chaney MD. Status of Scribe Document: Viewed
[2019-01-10 15:42] LABS: INR 0.99 (0.82-1.09)
[2019-01-10 16:08] LABS: Albumin 3.9 g/dL (3.2-5.2); Albumin/Globulin Ratio 1.6 (1-3); BUN/Creatinine Ratio 25.2 (8-20); Calcium 9.1 mg/dL (8.6-10.3); EGFR African American 60.6 (>60); EGFR Non-African American 50.1 (>60); Globulin 2.4 g/dL (2-4); Total Bilirubin 0.4 mg/dL (0.2-1.0); Total Protein 6.3 g/dL (6.4-8.9)
[2019-01-10 16:11] LABS: Potassium 5.8 mmol/L (3.5-5.0)
[2019-01-10] MEDS ORDERED: Albuterol 0.5% CONC NEB.SOL* 5 MG/ML 20 ml BOT INH ONE (17:08)
[2019-01-10 19:22] VITALS: BP 129/43
== END 2019-01-10 19:21 | disposition home or self-care (01) ==
LOC: ED 14:37
DX: K92.2 Gastrointestinal hemorrhage, unspecified (principal); E87.5 Hyperkalemia; Z87.891 Personal history of nicotine dependence
CPT/HCPCS: 36415; 80053; 82270; 83605; 84132; 85025; 85610; 86850; 86900; 86901; 93005; 99283; J7611